=== PATIENT | female | born 1930 | race African-American/Black ===

== ENCOUNTER 2017-02-26 09:56 | Emergency (ER) | payer OTHER, MEDICAID ==
[~2017-02-26] VITALS: Ht 160 cm; Wt 106.6 kg
[~2017-02-26 09:56] MED LIST: ALEN70TA3 PO; ASPI81TA2 PO; ATEN-41 PO; FURO-149 PO; MAGN200T4 PO; POTA-118 PO
[2017-02-26 10:03] VITALS: BP_SYST 131
[2017-02-26] MEDS ORDERED: MECLIZINE HCL 25 MG TABLET (ANITVERT) PO ONE (10:30)
[2017-02-26 11:25] LABS: BASOPHILS % (AUTO) 0.6 % (0.0-2.0); EOSINOPHILS % (AUTO) 0.1 % (0.0-4.0); HEMATOCRIT 46.9 % (36-48); HEMOGLOBIN 14.9 g/dL (12.0-16.0); LYMPHOCYTES # (AUTO) 1.9 K/uL (1.0-5.5); LYMPHOCYTES % (AUTO) 24.2 % (20.5-51.5); MEAN CORPUSCULAR HEMOGLOBIN 30 pg (27-31); MEAN CORPUSCULAR HGB CONC 32 % (32-36); MEAN CORPUSCULAR VOLUME 93 fL (79.0-98.0); MONOCYTES # (AUTO) 0.4 K/uL (0.0-1.0); MONOCYTES % (AUTO) 5.2 % (1.7-9.3); NEUTROPHILS # (AUTO) 5.6 K/uL (1.8-7.7); NEUTROPHILS % (AUTO) 69.9 % (40.0-70.0); PLATELET COUNT (AUTO) 265 K/uL (130-430); RED BLOOD CELL COUNT(AUTO) 5.07 MIL/uL (4.2-6.2); RED CELL DISTRIBUTION WIDTH 12.9 % (9.0-15.0); WHITE BLOOD COUNT (AUTO) 7.9 K/uL (4.8-10.8)
[2017-02-26 11:50] LABS: ANION GAP 10 (5-15); CALCIUM 9.2 mg/dL (8.4-11.0); CHLORIDE 105 mmol/L (98-107); CREATININE 0.87 mg/dL (0.55-1.30); GLUCOSE 131 mg/dL (70-99); POTASSIUM 3.9 mmol/L (3.5-5.1); SODIUM SERUM 140 mmol/L (136-145); UREA NITROGEN, BLOOD 10 mg/dL (8-21)
[2017-02-26 11:55] LABS: ALANINE AMINOTRANSFERASE 18 U/L (12-78); ALBUMIN 3.6 g/dL (3.4-4.8); ASPARTATE AMINOTRANSFERASE 20 U/L (10-37); TOTAL BILIRUBIN 0.4 mg/dL (0.0-1.0)
[2017-02-26 13:22] LABS: BILIRUBIN,URINE NEGATIVE (NEGATIVE); BLOOD, URINE TRACE (NEGATIVE); CLARITY/URINE CLEAR (CLEAR); COLOR,URINE YELLOW (YELLOW); GLUCOSE,URINE NEGATIVE (NEGATIVE); KETONES,URINE 1+ (NEGATIVE); LEUKOCYTE ESTERASE ,URINE TRACE (NEGATIVE); NITRITE, URINE POSITIVE (NEGATIVE); PROTEIN URINE NEGATIVE (NEGATIVE); UROBILINOGEN,URINE 0.2 (0.2-1.0)
[2017-02-26 13:56] LABS: BACTERIA,URINE FEW /HPF (None Seen)
[2017-02-26 13:57] LABS: MUCUS,URINE 1+ /LPF (None Seen)
[2017-02-26 16:48] VITALS: BP_SYST 134
== END 2017-02-26 16:48 | disposition home or self-care (01) ==
LOC: SED 09:56
DX: R42 Dizziness and giddiness (principal); N39.0 Urinary tract infection, site not specified; J44.9 Chronic obstructive pulmonary disease, unspecified; I10 Essential (primary) hypertension; Z79.899 Other long term (current) drug therapy
CPT/HCPCS: 36415; 70450; 71010; 80053; 81000; 83605; 83880; 84484; 85025; 87040; 87086; 93005; 99285; J8597

== ENCOUNTER 2017-06-14 12:01 | Inpatient (IN) | payer OTHER, MEDICAID ==
[~2017-06-14] VITALS: Ht 160 cm; Wt 98.9 kg
--- NOTE | 2017-06-14 12:03 | NUR ---
Pt placed in bed 7
--- NOTE | 2017-06-14 12:20 | NUR ---
ER at bedside examining patient.
--- NOTE | 2017-06-14 12:45 | NUR ---
Pt complains of cough, chest congestion for the past 3 weeks with chest pain while coughing for the past week. Pt denies n/v, fever or diarrhea. Pt denies SOB, is able to speak in full sentences. Pt states pain has stopped today in ER, went to PCP earlier today and was sent for check up. No other injuries/complaints per pt or noted.
[2017-06-14 12:49] LABS: HEMATOCRIT 38.9 % (36-48); HEMOGLOBIN 12.8 g/dL (12.0-16.0); MEAN CORPUSCULAR HEMOGLOBIN 30 pg (27-31); MEAN CORPUSCULAR HGB CONC 33 % (32-36); MEAN CORPUSCULAR VOLUME 91 fL (79.0-98.0); PLATELET COUNT (AUTO) 217 K/uL (130-430); RED BLOOD CELL COUNT(AUTO) 4.26 MIL/uL (4.2-6.2); WHITE BLOOD COUNT (AUTO) 13.8 K/uL (4.8-10.8)
[2017-06-14 13:00] LABS: ANION GAP 10 (5-15); CALCIUM 9.4 mg/dL (8.4-11.0); CHLORIDE 100 mmol/L (98-107); CREATININE 1.19 mg/dL (0.55-1.30); GLUCOSE 136 mg/dL (70-99); POTASSIUM 3.2 mmol/L (3.5-5.1); SODIUM SERUM 137 mmol/L (136-145); UREA NITROGEN, BLOOD 10 mg/dL (8-21)
[2017-06-14 13:05] LABS: ALANINE AMINOTRANSFERASE 224 U/L (12-78); ALBUMIN 2.6 g/dL (3.4-4.8); ASPARTATE AMINOTRANSFERASE 205 U/L (10-37); TOTAL BILIRUBIN 0.7 mg/dL (0.0-1.0)
[2017-06-14 13:41] LABS: BAND % (MANUAL) 4 % (0-6); BASOPHILS % (MANUAL) 0 % (0-2); EOSINOPHILS % (MANUAL) 0 % (0-7); LYMPHOCYTES % (MANUAL) 16 % (20-46); MONOCYTES % (MANUAL) 2 % (0-11)
[2017-06-14] MEDS ORDERED: POTASSIUM CHLORIDE 20 MEQ TAB.PRT.SR PO ONE (14:00)
--- NOTE | 2017-06-14 14:12 | NUR ---
PT DOES NOT HAVE MEDICATIONS OR MED LIST WITH HER. PT UNABLE TO REMEMBER WHAT MEDICATIONS SHE TAKES. PT TO CALL CAREGIVER FOR MED LIST.
[2017-06-14] MEDS ORDERED: POTASSIUM CHLORIDE 20 MEQ TAB.PRT.SR PO PRN (14:45)
[2017-06-14] MEDS ORDERED: ONDANSETRON HCL 4 MG/2 ML VIAL IVP PRN (14:45)
[2017-06-14] MEDS ORDERED: MUPIROCIN 2% TOPICAL OINTMENT 22 GM NS PRN (14:45)
[2017-06-14] MEDS ORDERED: MAGNESIUM SULFATE 50 ML IV PRN (14:45)
[2017-06-14] MEDS ORDERED: ACETAMINOPHEN 325 MG TABLET PO PRN (14:45)
[2017-06-14] MEDS ORDERED: MORPHINE 2 MG/ML INJ. SYRINGE IVP PRN ×2 (14:45)
[2017-06-14] MEDS ORDERED: LORazepam 2 MG/ML VIAL IVP PRN (14:45)
[2017-06-14] MEDS ORDERED: DOCUSATE SODIUM 100 MG CAPSULE PO PRN (14:45)
--- NOTE | 2017-06-14 14:52 | NUR ---
Admission Note Received patient from ER with diagnosis of CHEST PAIN. Initial Plan of Care discussed-patient verbalized understanding. . Oriented to room, call light, pain management and safety.
--- NOTE | 2017-06-14 15:01 | NUR ---
Patient will be admitted to care of DR MARTIN. Admitted to TELE unit. Will go to room 103A. Belongings list completed. Summary report printed. Report will be given at bedside.
[2017-06-14 15:03] VITALS: BP_SYST 147
--- NOTE | 2017-06-14 15:25 | NUR ---
CARDIOLOGY CONSULT WAS CALLED TO DR BURNHAM, RE: CP. SPOKE TO SARA
--- NOTE | 2017-06-14 15:30 | NUR ---
Patient received awake, alert and oriented x4, denies chest pain, denies nausea (patient vomited x1 in ER post K DUR administration per ER nurse and extra dose was not given) assessment complete at this time, breathing is even and unlabored, lungs are clear, generalized edema, IV site LAC 20 flushing well, no signs of infiltration no redness, skin is intact, RUSSIAN LANGUAGE PROFESSOR and I gave the patient a partial bed bath at this time changed her gown and made her comfortable, patient states she ambulates with walker (her home walker is at bedside), educated bonded strand operator light system and to call for assistance, patient verbalized understanding at this time, caregiver to bring in home medications so that med rec can be completed, bed in lowest position, two side rails up, bed alarm on, bed close to nurse's station, fall and aspiration precautions in place, continuing to monitor.
[2017-06-14] MEDS ORDERED: VITD2000 PO (16:16)
[2017-06-14] MEDS ORDERED: BIOT25007 PO (16:16)
[2017-06-14] MEDS ORDERED: VALS80TA2 PO (16:16)
[2017-06-14] MEDS: NACL 0.9% 1,000 ML IV SCH (16:21)
--- NOTE | 2017-06-14 17:42 | NUR ---
NO DIET IN PLACE; DR. MARTIN IS CALLED, AWAITING CALL BACK.
--- NOTE | 2017-06-14 18:45 | NUR ---
PATIENT IS EATING DINNER, AFTER DR. MATTHEWS GAVE ORDERS FOR PATIENT. NO SIGNS OF DISTRESS NOTED.
--- NOTE | 2017-06-14 19:30 | NUR ---
OPENING Report recieved from FRANCY Massey, pt resting in bed at this time, in NAD, bed alarm in place, IVF running as per orders. Pt with low grade temp 99.4, will continue to monitor and proceed as per orders. Safety maintained, call gann with patient, pt stated she is tired. Will continue with POC as per MD orders.
[2017-06-14 19:54] VITALS: BP_SYST 107
[2017-06-14] MEDS: HEPARIN SODIUM,PORCINE 5000 UNITS/ML VIAL SUBCUT SCH (20:04)
[2017-06-14] MEDS ORDERED: ZOLPIDEM TARTRATE 5 MG TABLET PO PRN (21:00)
--- NOTE | 2017-06-14 22:43 | NUR ---
ROUNDS Pt resting in bed at this time, NAD noted, safety maintained, bed alarm on and call gann with patient. Will obtain urine specimen when pt has to go. BIOMATHEMATICIAN aware, hat and speciemen container in bathroom. Will continue with POC as per MD orders
[2017-06-15 00:25] VITALS: BP_SYST 136
--- NOTE | 2017-06-15 00:39 | NUR ---
ROUNDS, Pt in NAD at this time, IVF running as per MD orders, walker at bedside, pending UA sample to be obtained at this time, no chest pain noted since beginning of navy airspace officer. Will continue with POC as per MD orders, safety maintained, call gann with patient, bed alarm active.
--- NOTE | 2017-06-15 02:30 | NUR ---
ROUNDS Pt resting in bed at this time, IVF running as per MD orders, pt in NAD, safety maintained, bed alarm active/bed locked/low position, call gann with patient. Fall and aspiration precautions in place, will continue with plan of care as per MD orders.
--- NOTE | 2017-06-15 04:19 | NUR ---
Rounds Pt resting in bed at this time, pt in no acute distress, Sinus rhythm on tele monitor, no signs or symptoms of chest pain. Safety maintained, call gann with patient, will continue plan of care as per MD orders at this time.
[2017-06-15] MEDS: NACL 0.9% 1,000 ML IV SCH ×2 (05:29→20:11)
[2017-06-15 06:38] LABS: BILIRUBIN,URINE 1+ (NEGATIVE); BLOOD, URINE 2+ (NEGATIVE); CLARITY/URINE SL HAZY (CLEAR); COLOR,URINE YELLOW (YELLOW); GLUCOSE,URINE NEGATIVE (NEGATIVE); KETONES,URINE 1+ (NEGATIVE); LEUKOCYTE ESTERASE ,URINE 1+ (NEGATIVE); NITRITE, URINE POSITIVE (NEGATIVE); PH,URINE 5.5 (5.0-8.0); PROTEIN URINE 1+ (NEGATIVE)
[2017-06-15 06:42] LABS: UROBILINOGEN,URINE >=8 (0.2-1.0)
--- NOTE | 2017-06-15 06:49 | NUR ---
CLOSING Pt resting on morning rounds, new bag of fluids hung at bedside as per orders for continuous IVF hydration. Pt asssited to restroom by KENA Kwok and with use of patient walker. UA sent to lab at this time. Pt in NAD, breathing easy, evenly and unlabored. All needs met at this time, safety maintained, call gann with patient, bed alarm active/bedlocked/low position. Will endorse plan of care with day RN Jessica at change of shift shortly.
[2017-06-15 07:09] LABS: BACTERIA,URINE MANY /HPF (None Seen); WBC,URINE 50-80 /HPF (0-3)
[2017-06-15 07:09] LABS: ANION GAP 11 (5-15); CALCIUM 8.4 mg/dL (8.4-11.0); CHLORIDE 102 mmol/L (98-107); GLUCOSE 111 mg/dL (70-99); SODIUM SERUM 139 mmol/L (136-145); UREA NITROGEN, BLOOD 14 mg/dL (8-21)
[2017-06-15 07:10] LABS: BASOPHILS % (AUTO) 0.2 % (0.0-2.0); EOSINOPHILS # (AUTO) 0.1 K/uL (0.0-0.4); EOSINOPHILS % (AUTO) 0.5 % (0.0-4.0); HEMATOCRIT 34.8 % (36-48); HEMOGLOBIN 11.3 g/dL (12.0-16.0); LYMPHOCYTES # (AUTO) 2.4 K/uL (1.0-5.5); MEAN CORPUSCULAR HEMOGLOBIN 29 pg (27-31); MEAN CORPUSCULAR HGB CONC 32 % (32-36); MEAN CORPUSCULAR VOLUME 90 fL (79.0-98.0); MONOCYTES # (AUTO) 1.6 K/uL (0.0-1.0); MONOCYTES % (AUTO) 13.9 % (1.7-9.3); NEUTROPHILS # (AUTO) 7.7 K/uL (1.8-7.7); NEUTROPHILS % (AUTO) 65.4 % (40.0-70.0); PLATELET COUNT (AUTO) 187 K/uL (130-430); RED BLOOD CELL COUNT(AUTO) 3.86 MIL/uL (4.2-6.2); RED CELL DISTRIBUTION WIDTH 12.5 % (9.0-15.0); WHITE BLOOD COUNT (AUTO) 11.8 K/uL (4.8-10.8)
--- NOTE | 2017-06-15 07:20 | NUR ---
Opening Note Patient a/ox3. No complaints of pain or difficulty breathing on room air. Vital signs taken. Extensions science editor, DOLPHIN TRAINER and chargeback specialist written on white board. Plan of care discussed with patient and patient verbalized understanding. Safety precautions in order with patient's own walker at bedside. Call light and phone in reach.
[2017-06-15 08:16] VITALS: BP_SYST 126
[2017-06-15] MEDS: ASPIRIN 81 MG TAB.CHEW PO SCH (08:23)
[2017-06-15] MEDS: FUROSEMIDE 40 MG TABLET PO SCH (08:23)
[2017-06-15] MEDS: POTASSIUM CHLORIDE 20 MEQ TAB.PRT.SR PO SCH (08:23)
[2017-06-15] MEDS: HEPARIN SODIUM,PORCINE 5000 UNITS/ML VIAL SUBCUT SCH ×2 (08:25→20:11)
--- NOTE | 2017-06-15 08:45 | NUR ---
Nutrition Update Bienvenido Scale 17 noted. Pt admitted for chest pain Diet: regular diet BMI: 38.6 kg/m2 RD to follow per nutrition care standards.
[2017-06-15] MEDS ORDERED: ATENOLOL 25 MG TABLET(TENORMIN) PO SCH (09:00)
--- NOTE | 2017-06-15 10:12 | NUR ---
Rounds Patient sleeping in bed. No signs of pain or distress.
[2017-06-15 12:05] VITALS: BP_SYST 124
--- NOTE | 2017-06-15 12:42 | NUR ---
PATIENT RESTING: Patient resting quietly. No acute distress noted. Vital signs within normal range.
--- NOTE | 2017-06-15 13:50 | NUR ---
Bathroom Patient asks for assistance to bathroom. Ambulated with steady gait to bathroom with own walker.
--- NOTE | 2017-06-15 15:40 | NUR ---
Linens Changed at this time. Patient offered a bed bath and refused.
--- NOTE | 2017-06-15 16:10 | NUR ---
Rounds Patient laying down in bed receiving echocardiogram. No complaints of shortness of breath or discomfort at this time.
[2017-06-15 16:44] VITALS: BP_SYST 135
--- NOTE | 2017-06-15 18:27 | NUR ---
Closing Note Patient A/ox3, laying in bed. No complaints of pain at this time. IV to left ac patent and infusing fluid. Patient's walker and sandals at bedside. Safety precautions in order. All needs met. Will endorse to noc shift patient's plan of care.
[2017-06-15] MEDS ORDERED: ALENDRONATE SODIUM 70 MG TABLET (FOSAMAX) PO SCH (18:45)
[2017-06-15] MEDS ORDERED: cefTRIAXone 1 GM in D5W 50 ML IV ONE (18:45)
[2017-06-15] MEDS ORDERED: LEVOFLOXACIN 500 MG/D5W 100 ML IV ONE ×2 (18:45→20:29)
--- NOTE | 2017-06-15 19:23 | NUR ---
OPENING NOTE PT RESTING IN BED, BREATHING IS EVEN AND UNLABORED ON ROOM AIR, VITAL SIGNS STABLE NO SIGNS OF DISTRESS NOTED A THIS TIME. PT DENIES ANY PAIN, INCLUDING CHEST PAIN, WELL SOB OR ANY OTHER CONCERNS. PT'S DINNER AT BEDSIDE AND PT STATES SHE DOES NOT HAVE AN APPETITE AND WOULD JUST LIKE TO REST AT THIS TIME. IV SITE IS CLEAN, DRY AND INTACT W/ IVF INFUSING WELL. BED IS LOCKED IN LOWEST POSITION, 2 SIDE RAILS UP, CALL LIGHT W/ PT AND PT INSTRUCTED TO CALL IF ASSISTANCE NEEDED. PT VERBALIZED UNDERSTANDING OF INSTRUCTIONS PROVIDED.
[2017-06-15 20:00] VITALS: BP_SYST 144
[2017-06-15] MEDS ORDERED: cefTRIAXone 1 GM IVPB PREMIX 50 ML IV ONE (20:29)
--- NOTE | 2017-06-15 21:48 | NUR ---
ROUNDS PT RESTING IN BED W/ NO SIGNS OF DISTRESS NOTED AT THIS TIME. PT DENIES PAIN, SOB OR ANY OTHER CONCERNS. DUE IV ANTIBIOTICS ADMINISTERED AND EDUCATION PROVIDED TO PT REGARDING MEDICATION USE AND POSSIBLE SIDE EFFECTS. SAFETY MEASURES IN PLACE AND WILL CONTINUE TO MONITOR PT.
--- NOTE | 2017-06-15 23:20 | NUR ---
BATHROOM / BED LINENS CHANGED ASSISTED PT TO RESTROOM W/ WALKER TO VOID. CHANGED BED LINENS AND PT'S GOWN PT WAS WET. SAFETY MEASURES IN PLACE AND CONFIRMED CALL LIGHT W/ PT. INSTRUCTED PT TO CALL IF FURTHER ASSISTANCE NEEDED.
[2017-06-16 00:14] VITALS: BP_SYST 129
--- NOTE | 2017-06-16 00:33 | NUR ---
ROUNDS PT SLEEPING W/ NO SIGNS OF DISTRESS NOTED AT THIS TIME. SAFETY MEASURES IN PLACE AND WILL CONTINUE TO MONITOR PT.
--- NOTE | 2017-06-16 02:07 | NUR ---
ROUNDS PT SLEEPING IN BED W/ NO SIGNS OF DISTRESS NOTED AT THIS TIME. SAFETY MEASURES IN PLACE, CALL LIGHT W/ PT, WILL CONTINUE TO MONITOR PT.
--- NOTE | 2017-06-16 04:13 | NUR ---
ROUNDS ASSISTED PT UP TO THE COMMODE TO VOID AND HAVE BM. NO SIGNS OF DISTRESS NOTED, SAFETY MEASURES IN PLACE, 2 SIDE RAILS UP, BED ALARM ON AND CALL LIGHT W/ PT. WILL CONTINUE TO MONITOR PT.
[2017-06-16 07:20] LABS: BASOPHILS % (AUTO) 0.2 % (0.0-2.0); EOSINOPHILS % (AUTO) 0.3 % (0.0-4.0); HEMATOCRIT 35.3 % (36-48); HEMOGLOBIN 11.6 g/dL (12.0-16.0); LYMPHOCYTES # (AUTO) 2.5 K/uL (1.0-5.5); LYMPHOCYTES % (AUTO) 19.3 % (20.5-51.5); MEAN CORPUSCULAR HEMOGLOBIN 30 pg (27-31); MEAN CORPUSCULAR HGB CONC 33 % (32-36); MEAN CORPUSCULAR VOLUME 91 fL (79.0-98.0); MONOCYTES # (AUTO) 1.6 K/uL (0.0-1.0); MONOCYTES % (AUTO) 12.3 % (1.7-9.3); NEUTROPHILS # (AUTO) 8.7 K/uL (1.8-7.7); NEUTROPHILS % (AUTO) 67.9 % (40.0-70.0); PLATELET COUNT (AUTO) 206 K/uL (130-430); RED BLOOD CELL COUNT(AUTO) 3.88 MIL/uL (4.2-6.2); RED CELL DISTRIBUTION WIDTH 12.3 % (9.0-15.0); WHITE BLOOD COUNT (AUTO) 12.8 K/uL (4.8-10.8)
[2017-06-16 07:40] LABS: ANION GAP 9 (5-15); CALCIUM 8.7 mg/dL (8.4-11.0); CHLORIDE 104 mmol/L (98-107); CREATININE 0.54 mg/dL (0.55-1.30); GLUCOSE 107 mg/dL (70-99); POTASSIUM 3.6 mmol/L (3.5-5.1); SODIUM SERUM 138 mmol/L (136-145); UREA NITROGEN, BLOOD 8 mg/dL (8-21)
--- NOTE | 2017-06-16 07:40 | NUR ---
Initial Note Received report from the night nurse Reanna. Pt AOX4. No signs of distress noted at this time. Bed is a lowest position. Call light within reach.
--- NOTE | 2017-06-16 07:45 | NUR ---
CLOSING NOTE PT AWAKE, RESTING IN BED EATING BREAKFAST, W/ NO SIGNS OF DISTRESS NOTED. PT'S NEEDS MET THROUGH SHIFT, SAFETY MEASURES IN PLACE, ENDORSED PT TO DAY SHIFT RN ERNIE.
[2017-06-16 08:05] VITALS: BP_SYST 146
[2017-06-16] MEDS: NACL 0.9% 1,000 ML IV SCH ×2 (09:31→23:57)
[2017-06-16] MEDS: POTASSIUM CHLORIDE 20 MEQ TAB.PRT.SR PO SCH (09:31)
[2017-06-16] MEDS: ASPIRIN 81 MG TAB.CHEW PO SCH (09:32)
[2017-06-16] MEDS: CHOLECALCIFEROL (VITAMIN D3) 2,000 UNIT TABLET PO SCH (09:32)
[2017-06-16] MEDS: VALSARTAN 80 MG TABLET (DIOVAN) PO SCH (09:32)
[2017-06-16] MEDS: FUROSEMIDE 40 MG TABLET PO SCH (09:32)
[2017-06-16] MEDS: HEPARIN SODIUM,PORCINE 5000 UNITS/ML VIAL SUBCUT SCH ×2 (09:34→21:06)
[2017-06-16 11:28] VITALS: BP_SYST 140
--- NOTE | 2017-06-16 11:32 | NUR ---
RN Rounds Pt resting and no signs of distress noted at this time. Bed is at lowest position and alarm ON. Call light within reach.
[2017-06-16] MEDS ORDERED: SULF1TAB48 PO (12:18)
[2017-06-16] MEDS ORDERED: METH4TAB3 PO (12:18)
[2017-06-16] MEDS ORDERED: ALBMDI INH (12:18)
[2017-06-16 15:23] VITALS: BP_SYST 147
--- NOTE | 2017-06-16 15:37 | NUR ---
RN Rounds Pt awake and does not shows any signs of distress at this time. Bed is at lowest position and alarm ON. Call light within reach.
--- NOTE | 2017-06-16 18:09 | NUR ---
Unable to discharge As per pt, she does not have a cardiac care unit nurse at this time. As per charge nurse Razia Alvarado is aware.
--- NOTE | 2017-06-16 18:58 | NUR ---
Closing Note Pt AOX4. No signs of distress noted at this time. Bed is at lowest position, and bed alarm On. Call light within reach. Discharge order has been cancelled due to pt does not have anyone who can take care of her at home. Dr. Alvarado is aware.
[2017-06-16 20:15] VITALS: BP_SYST 129
--- NOTE | 2017-06-16 20:15 | NUR ---
OPENING NOTE PT RESTING IN BED, BREATHING IS EVEN AND UNLABORED ON ROOM AIR, VITAL SIGNS STABLE NO SIGNS OF DISTRESS NOTED A THIS TIME. PT DENIES PAIN OR ANY OTHER CONCERNS. IV PUMP IS OFF, PER DAY SHIFT RN, MACHINE KEEPS BEEPING EVEN THOUGH IV IS FLUSHING WELL. BED IS LOCKED IN LOWEST POSITION, 2 SIDE RAILS UP, CALL LIGHT W/ PT AND PT INSTRUCTED TO CALL IF ASSISTANCE NEEDED. PT VERBALIZED UNDERSTANDING OF INSTRUCTIONS PROVIDED.
[2017-06-16] MEDS ORDERED: cefTRIAXone 1 GM in D5W 50 ML IV SCH (21:00)
[2017-06-16] MEDS ORDERED: LEVOFLOXACIN 250 MG/D5W 50 ML IV SCH (21:00)
--- NOTE | 2017-06-16 21:06 | NUR ---
MEDICATION PASS / IV LEAKING PT RESTING IN BED WATCHING TELEVISION W/ NO SIGNS OF DISTRESS NOTED AT THIS TIME. DUE MEDICATIONS ADMINISTERED AND EDUCATION PROVIDED TO PT REGARDING MEDICATION USES AND POSSIBLE SIDE EFFECTS. IV ANTIBIOTICS HUNG AND IV SITE NOTED TO BE LEAKING W/ MILD REDNESS AT SITE. IV INFUSION STOPPED, IV TO LEFT AC DISCONTINUED, DRESSING APPLIED AND BLEEDING CONTROLLED. NEW IV TO BE STARTED. SAFETY MEASURES IN PLACE, CALL LIGHT W/ PT AND WILL CONTINUE TO MONITOR PT.
--- NOTE | 2017-06-16 23:20 | NUR ---
ROUNDS ASSISTED PT UP TO COMMODE TO VOID. NO SIGNS OF DISTRESS NOTED AT THIS TIME, SAFETY MEASURES IN PLACE, CALL LIGHT W/ PT AND WILL CONTINUE TO MONITOR PT.
--- NOTE | 2017-06-16 23:47 | NUR ---
NEW IV NEW 22G IV TO LEFT UPPER ARM STARTED ON THIRD ATTEMPT BY FRANCY MEEHAN. PT TOLERATED WELL, IVF RESTARTED AND INFUSING WELL.
[2017-06-17 00:45] VITALS: BP_SYST 139
--- NOTE | 2017-06-17 02:20 | NUR ---
ROUNDS PT SLEEPING, VISIBLE RISE AND FALL OF CHEST NOTED, NO SIGNS OF DISTRESS NOTED AT THIS TIME. SAFETY MEASURES IN PLACE, CALL LIGHT W/ PT AND WILL CONTINUE TO MONITOR PT.
--- NOTE | 2017-06-17 04:28 | NUR ---
ROUNDS PT SLEEPING W/ NO SIGNS OF DISTRESS. SAFETY MEASURES IN PLACE, CALL LIGHT W/ PT, WILL CONTINUE TO MONITOR PT.
[2017-06-17 07:18] LABS: BASOPHILS % (AUTO) 0.1 % (0.0-2.0); EOSINOPHILS % (AUTO) 0.2 % (0.0-4.0); HEMATOCRIT 35.6 % (36-48); HEMOGLOBIN 11.7 g/dL (12.0-16.0); LYMPHOCYTES # (AUTO) 2.1 K/uL (1.0-5.5); LYMPHOCYTES % (AUTO) 14.9 % (20.5-51.5); MEAN CORPUSCULAR HEMOGLOBIN 30 pg (27-31); MEAN CORPUSCULAR HGB CONC 33 % (32-36); MEAN CORPUSCULAR VOLUME 90 fL (79.0-98.0); MONOCYTES # (AUTO) 1.8 K/uL (0.0-1.0); MONOCYTES % (AUTO) 13.3 % (1.7-9.3); NEUTROPHILS % (AUTO) 71.5 % (40.0-70.0); PLATELET COUNT (AUTO) 248 K/uL (130-430); RED BLOOD CELL COUNT(AUTO) 3.94 MIL/uL (4.2-6.2); RED CELL DISTRIBUTION WIDTH 12.6 % (9.0-15.0); WHITE BLOOD COUNT (AUTO) 13.9 K/uL (4.8-10.8)
[2017-06-17 07:35] VITALS: BP_SYST 146
--- NOTE | 2017-06-17 07:35 | NUR ---
Closing Note Pt resting in bed, w/ no signs of distress noted at this time. Pt's needs met through shift, safety measures in place, endorsed to day shift RN Bang.
--- NOTE | 2017-06-17 07:35 | NUR ---
Initial Note Received report from the night nurse Reanna. Pt AOX4. No signs of distress noted at this time. Bed is at lowest position and bed alarm is ON. Pt educated on how to use the call light. Encouraged pt to use call light before trying getting out of the bed.
[2017-06-17 07:36] LABS: ANION GAP 7 (5-15); CALCIUM 8.9 mg/dL (8.4-11.0); CHLORIDE 102 mmol/L (98-107); CREATININE 0.47 mg/dL (0.55-1.30); GLUCOSE 123 mg/dL (70-99); POTASSIUM 3.5 mmol/L (3.5-5.1); SODIUM SERUM 137 mmol/L (136-145); UREA NITROGEN, BLOOD 6 mg/dL (8-21)
[2017-06-17] MEDS: ASPIRIN 81 MG TAB.CHEW PO SCH (09:03)
[2017-06-17] MEDS: VALSARTAN 80 MG TABLET (DIOVAN) PO SCH (09:04)
[2017-06-17] MEDS: CHOLECALCIFEROL (VITAMIN D3) 2,000 UNIT TABLET PO SCH (09:05)
[2017-06-17] MEDS: FUROSEMIDE 40 MG TABLET PO SCH (09:05)
[2017-06-17] MEDS: POTASSIUM CHLORIDE 20 MEQ TAB.PRT.SR PO SCH (09:05)
[2017-06-17] MEDS: HEPARIN SODIUM,PORCINE 5000 UNITS/ML VIAL SUBCUT SCH (09:07)
--- NOTE | 2017-06-17 10:05 | NUR ---
Pt request Pt is asking to be discharge home today. As per the pt she has a morning caregiver to take care of her 24 hrs/day. She states that she doesn't want to get discharge to SNF. Dr. Alvarado is aware of pt's request.
--- NOTE | 2017-06-17 11:35 | NUR ---
RN Rounds Pt awake and does not complain of any pain or discomfort at this time. Bed is at lowest position. Bed alarm activated. Call light within reach.
[2017-06-17] MEDS: NACL 0.9% 1,000 ML IV SCH (11:45)
[2017-06-17 12:40] VITALS: BP_SYST 136
[2017-06-17 14:02] VITALS: BP_SYST 136
[2017-06-17 16:55] VITALS: BP_SYST 135
--- NOTE | 2017-06-17 16:55 | NUR ---
Discharge Note Pt has been discharged home as ordered by Dr. Alvarado. Pt is in stable condition at the time of discharge. No signs of distress noted. Transitional care documentation and instructions given to pt. telecommunications cable jointer is driving Pt home. IV line removed, pressures and gauze applied. no signs of bleeding noted. ID band removed.
--- NOTE | 2017-06-19 14:59 | NUR ---
Discharge Follow Up Phone Call HONEYCOMB DECAPPER phoned patient, . Patient stated she is okay but not feeling well today. Patient sounded lethargic and somewhat short of breath. HONEYCOMB DECAPPER asked if patient had people checking on her frequently and providing assistance. Patient stated she did. Patient stated her prescriptions have not been filled yet because they were suppose to be delivered but she had not answered the door. Patient stated she is expecting the delivery any moment. Patient has not made a follow up appointment with her PCP, Dr Luz Saucedo. HONEYCOM[employer] DECAPPER offered to make the appointment but patient wanted to make the appointment herself to fit her son's schedule. Patient was anxious to end the call and stated she had no questions or concerns.
== END 2017-06-17 16:55 | disposition home or self-care (01) | DRG 205 ==
LOC: SED 12:01 → STU 14:05 → SMU 06-15 14:38
PROVIDERS: ADMIT General Practice; ATTEND General Practice
DX: M94.0 Chondrocostal junction syndrome [Tietze] (principal); N17.0 Acute kidney failure with tubular necrosis; J44.0 Chronic obstructive pulmonary disease with (acute) lower respiratory infection; N39.0 Urinary tract infection, site not specified; I11.9 Hypertensive heart disease without heart failure; I10 Essential (primary) hypertension; D64.9 Anemia, unspecified; I51.9 Heart disease, unspecified; J20.9 Acute bronchitis, unspecified; M81.0 Age-related osteoporosis without current pathological fracture; K21.9 Gastro-esophageal reflux disease without esophagitis; Z90.710 Acquired absence of both cervix and uterus
CPT/HCPCS: 36415; 71045; 80048; 80053; 81000-TC; 83605; 83735-TC; 83880; 84484; 85007; 85025; 85027; 87040-TC; 93005; 93306; 99285; J0696; J1644; J1956; J7030; J7060